=== PATIENT | female | born 1970 | race Two or more races ===

== ENCOUNTER 2021-02-07 11:05 | Emergency (ER) | payer SELFPAY ==
[~2021-02-07] VITALS: Ht 157.5 cm; Wt 71.2 kg
[2021-02-07] MEDS ORDERED: ASPirin 81 mg TAB PO ONE (11:15)
[2021-02-07 11:56] LABS: Basophils # (auto) 0 10 ^3/uL (0-0.2); Basophils % (auto) 0.6 % (0.0-2.0); Eosinophils # (auto) 0.1 10 ^3/uL (0-0.8); Eosinophils % (auto) 1.5 % (0.0-7.0); Hematocrit 38.4 % (36.0-46.0); Lymphocytes # (auto) 2.1 10 ^3/uL (0.4-5.4); Lymphocytes % (auto) 44.7 % (10.0-50.0); Mean Corpuscular Hemoglobin 30.9 pg (28.0-32.0); Monocytes # (auto) 0.4 10 ^3/uL (0-1.3); Monocytes % (auto) 8.2 % (0.0-12.0); Neutrophils # (auto) 2.1 10 ^3/uL (1.6-8.6); Nucleated Red Blood Cells % 0.1 %; Red Blood Cells 4.22 10^6/uL (4.0-5.20); Red Cell Distribution Width 13.2 % (11.8-14.3); White Blood Cell 4.7 10^3/uL (4.4-10.8)
[2021-02-07 11:58] VITALS: BP 137/79
[2021-02-07 12:30] LABS: Albumin 3.8 g/dL (3.4-5.0); Anion Gap 7 (5-15); Blood Urea Nitrogen 11 mg/dL (7-18); Calcium 9.3 mg/dL (8.5-10.1); Carbon Dioxide 25 mmol/L (21-32); Chloride 106 mmol/L (98-107); Glucose 165 mg/dL (74-106); Magnesium 2.1 mg/dL (1.6-2.6); Potassium 4.1 mmol/L (3.5-5.1); Sodium 138 mmol/L (136-145)
[2021-02-07 12:37] LABS: Alanine Aminotransferase 92 U/L (13-56); Alkaline Phosphatase 95 U/L (45-117); Aspartate Aminotransferase 79 U/L (15-37); BUN/Creatinine Ratio 16.4; Bilirubin, Total 0.8 mg/dL (0.2-1.0); GFR African American 121 mL/min; GFR Non-African American 100 mL/min; Total Protein 8.8 g/dL (6.4-8.2)
== END 2021-02-07 13:20 | disposition home or self-care (01) ==
LOC: ER 11:05
DX: R07.89 Other chest pain (principal); E11.9 Type 2 diabetes mellitus without complications; Z90.89 Acquired absence of other organs
CPT/HCPCS: 36415; 71046; 80053; 83735; 84443; 84484; 85025; 85379; 93005

== ENCOUNTER 2023-07-12 15:00 | Emergency (ER) | payer MEDICAID, OTHER ==
[~2023-07-12] VITALS: Ht 157.5 cm; Wt 77.2 kg
[2023-07-12] MEDS ORDERED: METH4PAK PO (15:13)
[2023-07-12 17:07] VITALS: BP 128/80; PULSE 74; RESP 18; TEMP 98.6; O2SAT 98
== END 2023-07-12 17:08 | disposition home or self-care (01) ==
LOC: ER 15:00
DX: G51.0 Bell's palsy (principal); E11.9 Type 2 diabetes mellitus without complications; Z98.890 Other specified postprocedural states; Z79.899 Other long term (current) drug therapy
CPT/HCPCS: 70450

== ENCOUNTER 2023-07-19 22:08 | Emergency (ER) | payer MEDICAID ==
[~2023-07-19] VITALS: Ht 157.5 cm; Wt 77.3 kg
[~2023-07-19 22:08] MED LIST: METH4PAK PO
[2023-07-19 23:17] LABS: Basophils # (auto) 0 10 ^3/uL (0-0.2); Basophils % (auto) 0.5 % (0.0-2.0); Eosinophils # (auto) 0.1 10 ^3/uL (0-0.8); Eosinophils % (auto) 1.2 % (0.0-7.0); Hematocrit 38.1 % (36.0-46.0); Hemoglobin 12.9 g/dL (12.2-16.2); Lymphocytes # (auto) 3.1 10 ^3/uL (0.4-5.4); Lymphocytes % (auto) 34.3 % (10.0-50.0); Mean Corpuscular Hemoglobin 32.2 pg (28.0-32.0); Mean Corpuscular Hgb Conc. 33.9 g/dL (32.0-36.0); Monocytes # (auto) 0.8 10 ^3/uL (0-1.3); Monocytes % (auto) 8.8 % (0.0-12.0); Neutrophils # (auto) 4.9 10 ^3/uL (1.6-8.6); Neutrophils % (auto) 55.2 % (37.0-80.0); Nucleated Red Blood Cells % 0.1 %; Red Blood Cells 4.01 10^6/uL (4.0-5.20); White Blood Cell 8.9 10^3/uL (4.4-10.8)
[2023-07-19 23:35] LABS: Alanine Aminotransferase 68 U/L (7-40); Albumin 3.9 g/dL (3.2-4.8); Alkaline Phosphatase 86 U/L (46-116); Anion Gap 5 (5-15); Aspartate Aminotransferase 51 U/L (13-40); BUN/Creatinine Ratio 21.3 (10.0-20.0); Blood Urea Nitrogen 17 mg/dL (9-23); Calcium 9.7 mg/dL (8.7-10.4); Carbon Dioxide 27 mmol/L (20-30); Chloride 106 mmol/L (98-107); Glucose 200 mg/dL (74-106); Potassium 3.9 mmol/L (3.5-5.1); Sodium 138 mmol/L (136-145)
[2023-07-19 23:36] LABS: Bilirubin, Total 0.4 mg/dL (0.2-1.0); Total Protein 7.1 g/dL (5.7-8.2)
[2023-07-20] MEDS ORDERED: VALA1TAB PO (00:52)
[2023-07-20 01:25] VITALS: BP 125/74; TEMP 97.8
[2023-07-20 01:26] VITALS: PULSE 82; RESP 16; O2SAT 97
[2023-07-20] MEDS: KETOROLAC TROMETH 60MG/2ML VIAL IM ONE (01:34)
== END 2023-07-20 01:35 | disposition home or self-care (01) ==
LOC: ER 22:08
DX: G51.0 Bell's palsy (principal); E11.9 Type 2 diabetes mellitus without complications; Z90.710 Acquired absence of both cervix and uterus
CPT/HCPCS: 36415; 70450; 71045; 72125; 80053; 84484; 85025; 93005; 96372; 99285; J1885

== ENCOUNTER 2024-12-31 15:44 | Emergency (ER) | payer MEDICAID, OTHER ==
[~2024-12-31] VITALS: Ht 154.9 cm; Wt 72.7 kg
[~2024-12-31 15:44] MED LIST changes: +VALA1TAB PO
--- NOTE | 2024-12-31 16:03 | ED.PDOC ---
SOB-HPI HPI Comments This is a 54 year old female presenting to the ED with chief complaint of cough. Patient reports that she has been experiencing a cough with associated SOB, poor appetite, and phlegm production for the past 9 days. Patient denies any fever, chills, N/V, chest pain, headache, or dizziness. Patient denies any history of asthma or COPD. Vital signs were stable at arrival. 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 Family History Family History: Family hx of DM Social History Smoker: Non-Smoker Alcohol: Denies ETOH Use Drugs: Denies Drug Use Lives In: Home Constitutional: denies: chills, diaphoresis, fatigue, fever, malaise, sweats, weakness, others EENTM: denies: blurred vision, double vision, ear bleeding, ear discharge, ear drainage, ear pain, ear ringing, eye pain, eye redness, hearing loss, mouth pain, mouth swelling, nasal discharge, nose bleeding, nose congestion, nose pain, photophobia, tearing, throat pain, throat swelling, voice changes, others Respiratory: reports: cough, shortness of breath; denies: hemoptysis, orthopnea, SOB at rest, SOB with excertion, stridor, wheezing, others Cardiovascular: denies: chest pain, dizzy spells, diaphoresis, Dyspnea on exertion, edema, irregular heart beat, left arm pain, lightheadedness, palpitations, PND, syncope, others Gastrointestinal: reports: poor appetite; denies: abdomen distended, abdominal pain, blood streaked bowels, constipated, diarrhea, dysphagia, difficulty swallowing, hematemesis, melena, nausea, poor fluid intake, rectal bleeding, rectal pain, vomiting, others Genitourinary: denies: abnormal vagina bleeding, burning, dyspareunia, dysuria, flank pain, frequency, hematuria, incontinence, pain, , vagina discharge, urgency, others Neurological: denies: dizziness, fainting, headache, left sided numbness, left sided weakness, numbness, paresthesia, pre-existing deficit, right sided num bness, right sided weakness, seizure, speech problems, tingling, tremors, weakness, others Musculoskeletal: denies: back pain, gout, joint pain, joint swelling, muscle pain, muscle stiffness, neck pain, others Integumetry: denies: bruises, change in color, change in hair/nails, dryness, laceration, lesions, lumps, rash, wounds, others Allergic/Immunocompromised: denies: Difficulty Healing, Frequent Infections, Hives, Itching, others Hematologic/Lymphatic: denies: anemia, blood clots, easy bleeding, easy bruising, swollen glands, others Endocrine: denies: excessive hunger, excessive sweating, excessive thirst, excessive urination, flushing, intolerance to cold, intolerance to heat, unexplained weight gain, unexplained weight loss, others Psychiatric: denies: anxiety, bipolar disorder, depression, hopeless, panic disorder, schizophrenia, sleepless, suicidal, others All Other Systems: Reviewed and Negative Physical Exam General Appearance: Mild Distress (Patient was in moderate distress at time of evaluation due to coughing concerns.), Normal HEENT: Normal ENT Inspection, Pharynx Normal, TMs Normal Neck: Full Range of Motion, Non-Tender, Normal, Normal Inspection Respiratory: Chest Non-Tender, Lungs Clear, No Accessory Muscle Use, No Respiratory Distress, Normal Breath Sounds, Other (Unremarkable auscultation bilateral lung stewart.) Cardiovascular: No Edema, No JVD, No Murmur, No Gallop, Normal Peripheral Pulses, Regular Rate/Rhythm Breast Exam: Deferred Gastrointestinal: No Organomegaly, Non Tender, No Pulsatile Mass, Normal Bowel Sounds, Soft Genitalia: Deferred Pelvic: Deferred Rectal: Deferred Extremities: No calf tenderness, Normal capillary refill, Normal inspection, Normal range of motion, Non-tender, No pedal edema Neurologic: Alert, No Motor Deficits, Normal Affect, Normal Mood, No Sensory Deficits Cerebellar Function: NOT DONE Reflexes: NOT DONE Skin: Dry, Normal Color, Warm Lymphatic: No Adenopathy Was a procedure done? Was a procedure done?: No Differential Dx Differential Diagnosis: Pneumonia, URI, Other (Allergies) X-Ray, Labs, Meds, VS Vital Signs Date Time Temp Pulse Resp B/P (MAP) Pulse Ox O2 Delivery O2 Flow Rate FiO2 12/31/24 17:14 82 17 118/80 (93) 98 12/31/24 17:14 82 17 98 Room Air 12/31/24 15:46 98.3 90 16 137/81 97 98.3 Lab Test 12/31/24 16:12 Range/Units White Blood Count 7.3 4.4-10.8 10^3/uL Red Blood Count 4.31 4.0-5.20 10^6/uL Hemoglobin 14.2 12.2-16.2 g/dL Hematocrit 40.3 36.0-46.0 % Mean Corpuscular Volume 93.5 80.0-100.0 fL Mean Corpuscular Hemoglobin 32.9 H 28.0-32.0 pg Mean Corpuscular Hemoglobin Concent 35.2 32.0-36.0 g/dL Red Cell Distribution Width 13.2 11.8-14.3 % Platelet Count 178 140-450 10^3/uL Mean Platelet Volume 8.8 6.9-10.8 fL Neutrophils (%) (Auto) 47.5 37.0-80.0 % Lymphocytes (%) (Auto) 43.0 10.0-50.0 % Monocytes (%) (Auto) 8.3 0.0-12.0 % Eosinophils (%) (Auto) 0.9 0.0-7.0 % Basophils (%) (Auto) 0.3 0.0-2.0 % Neutrophils # (Auto) 3.4 1.6-8.6 10 ^3/uL Lymphocytes # (Auto) 3.1 0.4-5.4 10 ^3/uL Monocytes # (Auto) 0.6 0-1.3 10 ^3/uL Eosinophils # (Auto) 0.1 0-0.8 10 ^3/uL Basophils # (Auto) 0 0-0.2 10 ^3/uL Nucleated Red Blood Cells 0.2 % D-Dimer, Quantitative 0.35 0.0-0.49 mg/L FEU Sodium Level 136 136-145 mmol/L Potassium Level 3.9 3.5-5.1 mmol/L Chloride Level 102 98-107 mmol/L Carbon Dioxide Level 25 20-31 mmol/L Anion Gap 9 5-15 Blood Urea Nitrogen 7 L 9-23 mg/dL Creatinine 0.65 0.550-1.02 mg/dL Glomerular Filtration Rate Calc 106 >90 mL/min BUN/Creatinine Ratio 10.8 10.0-20.0 Serum Glucose 271 H 74-106 mg/dL Calcium Level 9.4 8.7-10.4 mg/dL Troponin I High Sensitivity < 3 L </=34 ng/L B-Type Natriuretic Peptide 10.56 0-100 pg/mL Current Medications Medications (Trade) Dose Ordered Sig/Irina Route Start Time Stop Time Status Last Admin Dexamethasone Sodium Phosphate (Decadron Injection) 10 mg ONCE ONCE IM 12/31/24 16:00 12/31/24 16:07 DC 12/31/24 17:10 X-Ray, Labs, Meds, VS Comment All studies performed the ED were evaluated by me personally. Imaging studies were unremarkable for any pneumonia. Patient appears to be suffering from a prolonged viral upper respiratory illness. Advised patient utilize medication as needed. Tylenol and or Motrin for fever assistance. Time of 1ST Reevaluation: 17:32 Reevaluation 1ST: Improved Consultation: PCP Patient Education/Counseling: Diagnosis, Treatment Family Education/Counseling: Diagnosis, Treatment, No Family Present SEPSIS Sepsis Screen Date sepsis recognized/suspect: Dec 31, 2024 Time Sepsis recognized/suspect: 8 Recent Procedure: No On Antibiotic Therapy: No Respiratory Rate >20: No Heart Rate >90: Yes Temp<36 C (96.8 F) or >38.3 C: No SBP <90 or MAP <65 mmHG: No New Acute Mental Status Change: No Is the patient on CPAP, BIPAP,: No Physician Orders Chest Portable (12/31/24 16:00) Electrocardigram (12/31/24 16:00) Vital Signs Date Time Temp Pulse Resp B/P (MAP) Pulse Ox O2 Delivery O2 Flow Rate FiO2 12/31/24 17:14 82 17 118/80 (93) 98 12/31/24 17:14 82 17 98 Room Air 12/31/24 15:46 98.3 90 16 137/81 97 98.3 Laboratory Tests Test 12/31/24 16:12 White Blood Count 7.3 10^3/uL (4.4-10.8) Medications Medications Dose Ordered Sig/Irina Route Start Time Stop Time Status Last Admin Dose Admin Dexamethasone Sodium Phosphate 10 mg ONCE ONCE IM 12/31/24 16:00 12/31/24 16:07 DC 12/31/24 17:10 Departure 1 Departure Time of Disposition: 17:33 Impression: Primary Impression: Viral upper respiratory illness Disposition: HOME / SELF CARE / HOMELESS Condition: Stable Additional Instructions: Advise utilizing medication as needed for cough relief. Tylenol and or Motrin as needed for fever reduction. Advised patient that I have seen some patients have success with [id number] [facility] liquid Tussin cough syrup and Cepacol honey cough drops. e-Prescriptions Benzonatate (Benzonatate) 100 Mg Cap 1 CAP PO TID, #20 CAP Prov: DARIELA SOLORIO PAC 12/31/24 Discharged With: Self, Friend Critical Care Note Critical Care Time?: No Stability Stability form required: No Heart Score Heart Score: Heart Score Response (Comments) Value History N/A 0 EKG N/A 0 Age N/A 0 Risk Factors N/A 0 Troponin N/A 0 Total 0 I personally scribed for DARIELA SOLORIO PAC ([email or web address]) on 12/31/24 at 16:03. Electronically submitted by Kartik Hardy ([email or web address]). DARIELA SOLORIO PAC Dec 31, 2024 16:03
[2024-12-31 16:41] LABS: Hematocrit 40.3 % (36.0-46.0); Hemoglobin 14.2 g/dL (12.2-16.2); Mean Corpuscular Hemoglobin 32.9 pg (28.0-32.0); Mean Corpuscular Volume 93.5 fL (80.0-100.0); Nucleated Red Blood Cells % 0.2 %
--- NOTE | 2024-12-31 16:41 | DVH ---
XY CHEST PORTABLE, HISTORY: Shortness of breath COMPARISON: XY CHEST XRAY 1 VIEW on DOS: 07/19/23, CHEST TWO VIEWS ROUTINE on DOS: 02/07/21 XY CHEST XRAY 1 VIEW on DOS: 07/19/23, CHEST TWO VIEWS ROUTINE on DOS: 02/07/21 TECHNICAL DATA: 1 view of the chest was obtained. FINDINGS: Lines and tubes: None Cardiomediastinal silhouette: normal Pulmonary vasculature: normal Lung expansion: normal Lung airspace: normal Lung interstitium: normal Pleura: normal Pneumothorax: no Bones: Unremarkable Other: no IMPRESSION: No acute intrathoracic abnormality.
[2024-12-31 16:46] LABS: Chloride 102 mmol/L (98-107); Potassium 3.9 mmol/L (3.5-5.1); Sodium 136 mmol/L (136-145)
[2024-12-31 16:47] LABS: Anion Gap 9 (5-15); Calcium 9.4 mg/dL (8.7-10.4); Carbon Dioxide 25 mmol/L (20-31)
[2024-12-31 16:52] LABS: BUN/Creatinine Ratio 10.8 (10.0-20.0)
[2024-12-31 16:54] LABS: Glucose 271 mg/dL (74-106)
[2024-12-31 16:55] LABS: Blood Urea Nitrogen 7 mg/dL (9-23)
[2024-12-31 17:14] VITALS: BP 118/80; RESP 17; TEMP 98.2; O2SAT 98
[2024-12-31 17:30] VITALS: PULSE 77
[2024-12-31] MEDS ORDERED: BENZ100C97 PO (17:34)
--- NOTE | 2024-12-31 19:01 | ECG ---
[facility] Test Date: 2024-12-31 Test Time: 17:17:23 Pat Name: CLIFF BLISS Department: ED Room: Gender: F Revit Drafter: HÉCTOR : 1970 Requested By: DARIELA SOLORIO Order Number: [id number] Reading MD: Joce Ovalles Measurements Intervals [place] Rate: 77 P: 42 UT: 153 QRS: 11 QRSD: 101 T: 29 QT: 390 QTc: 442 Interpretive Statements Sinus rhythm Electronically Signed On 01-02-2025 22:55:23 PDT by Joce Ovalles Please click the below link to view image of tracing.
== END 2024-12-31 17:40 | disposition home or self-care (01) ==
LOC: ER 15:44
DX: J06.9 Acute upper respiratory infection, unspecified (principal); E11.9 Type 2 diabetes mellitus without complications; Z90.710 Acquired absence of both cervix and uterus; Z90.49 Acquired absence of other specified parts of digestive tract
CPT/HCPCS: 36415; 71045; 80048; 83880; 84484; 85025; 85379; 93005; 96372; 99285; J1100

== ENCOUNTER 2025-04-02 09:50 | Inpatient (IN) | payer MEDICAID ==
[~2025-04-02] VITALS: Ht 154.9 cm; Wt 74.1 kg
[~2025-04-02 09:50] MED LIST changes: +BENZ100C97 PO
[2025-04-02] MEDS: SODIUM CHLORIDE 0.9% 1,000 ML IV ONE (11:11)
[2025-04-02] MEDS: MORPHINE SULFATE 4 MG/ML SYR/VIAL IV ONE (11:12)
[2025-04-02] MEDS: ONDANSETRON HCL 4 MG/2 ML VIAL IV ONE (11:12)
[2025-04-02 11:13] LABS: Hematocrit 35.8 % (36.0-46.0); Hemoglobin 12.4 g/dL (12.2-16.2); Mean Corpuscular Hemoglobin 33.0 pg (28.0-32.0); Mean Corpuscular Volume 95.4 fL (80.0-100.0); Nucleated Red Blood Cells % 0.1 %
--- NOTE | 2025-04-02 11:20 | ED.PDOC ---
History of Present Illness HPI Comments 54-year-old female who was Latvian-speaking presents to the ER with prior medical history of diabetes, thyroid: Surgical history of appendectomy, hysterectomy and a chief complaint of abdominal pain. Patient reports on having right sided facial pain due from trauma two weeks ago, and supra pubic pain for past 5 days. Patient comes in having heaviness in the pubic area as well. Patient has been having hematuria which started last night associated with frequency. Denies any other symptoms at this time. Denies chills, fever, N/V/D, SOB, CP. No other associated symptoms, modifiers, recent injuries or sick contacts present at this time. Chief Complaint: Abdominal Pain Time Seen by MD: 10:45 Primary Care Provider: NONE Reviewed Notes: Nurses Notes, Medications, Allergies Allergies: Coded Allergies: NO KNOWN ALLERGIES (Unverified , 02/07/21) Home Meds Active Scripts Benzonatate (Benzonatate) 100 Mg Cap, 1 CAP PO TID, #20 CAP Prov:DARIELA SOLORIO PAC 12/31/24 Valacyclovir Hcl (Valtrex) 1 Gm Tab, 1 TAB PO TID for 7 Days, #21 TAB Prov:ANA LIU MD 07/20/23 Methylprednisolone (Medrol Dosepak) 4 Mg Mesfin, 4 MG PO UD, #21 TAB UAD Prov:KODI DELA CRUZ MD 07/12/23 Information Source: Patient Mode of Arrival: Ambulatory Severity: Moderate Timing: Days Duration: Since onset, Days Prehospital treatment: None Past Medical History PAST MEDICAL HISTORY: DM, Thyroid Surgical History: Appendectomy, Hysterectomy 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 Family History Family History: Reviewed,noncontributory to illness, Unknown Social History Smoker: Non-Smoker Alcohol: Denies ETOH Use Drugs: Denies Drug Use Lives In: Home Constitutional: denies: chills, diaphoresis, fatigue, fever, malaise, sweats, weakness, others EENTM: denies: blurred vision, double vision, ear bleeding, ear discharge, ear drainage, ear pain, ear ringing, eye pain, eye redness, hearing loss, mouth pain, mouth swelling, nasal discharge, nose bleeding, nose congestion, nose pain, photophobia, tearing, throat pain, throat swelling, voice changes, others Respiratory: denies: cough, hemoptysis, orthopnea, SOB at rest, shortness of breath, SOB with excertion, stridor, wheezing, others Cardiovascular: denies: chest pain, dizzy spells, diaphoresis, Dyspnea on exertion, edema, irregular heart beat, left arm pain, lightheadedness, palpitations, PND, syncope, others Gastrointestinal: reports: abdominal pain (Suprapubic pain/pubic heaviness); denies: abdomen distended, blood streaked bowels, constipated, diarrhea, dysphagia, difficulty swallowing, hematemesis, melena, nausea, poor appetite, poor fluid intake, rectal bleeding, rectal pain, vomiting, others Genitourinary: denies: abnormal vagina bleeding, burning, dyspareunia, dysuria, flank pain, frequency, hematuria, incontinence, pain, , vagina discharge, urgency, others Neurological: denies: dizziness, fainting, headache, left sided numbness, left sided weakness, numbness, paresthesia, pre-existing deficit, right sided numbness, right sided weakness, seizure, speech problems, tingling, tremors, weakness, others Musculoskeletal: denies: back pain, gout, joint pain, joint swelling, muscle pain, muscle stiffness, neck pain, others Integumetry: denies: bruises, change in color, change in hair/nails, dryness, laceration, lesions, lumps, rash, wounds, others Allergic/Immunocompromised: denies: Difficulty Healing, Frequent Infections, Hives, Itching, others Hematologic/Lymphatic: denies: anemia, blood clots, easy bleeding, easy bruisin g, swollen glands, others Endocrine: denies: excessive hunger, excessive sweating, excessive thirst, excessive urination, flushing, intolerance to cold, intolerance to heat, unexplained weight gain, unexplained weight loss, others Psychiatric: denies: anxiety, bipolar disorder, depression, hopeless, panic disorder, schizophrenia, sleepless, suicidal, others All Other Systems: Reviewed and Negative Physical Exam Exam Comments Suprapubic pain General Appearance: No Apparent Distress, Normal HEENT: Normal ENT Inspection, Pharynx Normal, TMs Normal Neck: Full Range of Motion, Non-Tender, Normal, Normal Inspection Respiratory: Chest Non-Tender, Lungs Clear, No Accessory Muscle Use, No Respiratory Distress, Normal Breath Sounds Cardiovascular: No Edema, No JVD, No Murmur, No Gallop, Normal Peripheral Pulses, Regular Rate/Rhythm Breast Exam: Deferred Gastrointestinal: No Organomegaly, Non Tender, No Pulsatile Mass, Normal Bowel Sounds, Soft Genitalia: Deferred Pelvic: Deferred Rectal: Deferred Extremities: No calf tenderness, Normal capillary refill, Normal inspection, Normal range of motion, Non-tender, No pedal edema Musculoskeletal : Apperance: Normal Neurologic: Alert, rn manager II-XII nml as Tested, No Motor Deficits, Normal Affect, Normal Mood, No Sensory Deficits Cerebellar Function: Normal Reflexes: Normal Skin: Dry, Normal Color, Warm Lymphatic: No Adenopathy Was a procedure done? Was a procedure done?: No Differential Dx Considerations may include: See MDM X-Ray, Labs, Meds, VS Vital Signs Date Time Temp Pulse Resp B/P (MAP) Pulse Ox O2 Delivery O2 Flow Rate FiO2 04/02/25 14:00 98.5 68 16 133/84 (100) 97 98.5 04/02/25 11:42 70 19 126/70 04/02/25 11:18 Room Air* 0 21 04/02/25 11:17 98.1 79 17 137/87 (104) 98 98.1 04/02/25 11:12 79 17 137/87 04/02/25 09:52 98.8 71 16 144/88 97 98.8 Lab Test 04/02/25 14:09 04/02/25 10:58 Range/Units Urine Color Dark-brown Yellow Urine Clarity Ex.turbid Clear Urine pH 6.0 5.0-9.0 Urine Specific [place] 1.019 1.001-1.035 Urine Protein 1+ H Negative Urine Ketones 1+ H Negative Urine Blood 3+ H Negative /uL Urine Nitrite Negative Negative Urine Bilirubin Negative Negative Urine Urobilinogen Normal Negative mg/dL Urine Leukocyte Esterase 3+ Negative /uL Urine RBC 93877 0 - 4 /hpf Urine Microscopic WBC 524 H 0-5 /HPF Urine Squamous Epithelial Cells None seen <5 /hpf Urine Bacteria None seen None Seen /hpf Urine Glucose Trace Normal mg/dL White Blood Count 7.6 4.4-10.8 10^3/uL Red Blood Count 3.75 L 4.0-5.20 10^6/uL Hemoglobin 12.4 12.2-16.2 g/dL Hematocrit 35.8 L 36.0-46.0 % Mean Corpuscular Volume 95.4 80.0-100.0 fL Mean Corpuscular Hemoglobin 33.0 H 28.0-32.0 pg Mean Corpuscular Hemoglobin Concent 34.6 32.0-36.0 g/dL Red Cell Distribution Width 12.7 11.8-14.3 % Platelet Count 163 140-450 10^3/uL Mean Platelet Volume 8.5 6.9-10.8 fL Neutrophils (%) (Auto) 69.2 37.0-80.0 % Lymphocytes (%) (Auto) 23.3 10.0-50.0 % Monocytes (%) (Auto) 6.8 0.0-12.0 % Eosinophils (%) (Auto) 0.4 0.0-7.0 % Basophils (%) (Auto) 0.3 0.0-2.0 % Neutrophils # (Auto) 5.3 1.6-8.6 10 ^3/uL Lymphocytes # (Auto) 1.8 0.4-5.4 10 ^3/uL Monocytes # (Auto) 0.5 0-1.3 10 ^3/uL Eosinophils # (Auto) 0 0-0.8 10 ^3/uL Basophils # (Auto) 0 0-0.2 10 ^3/uL Nucleated Red Blood Cells 0.1 % Sodium Level 140 136-145 mmol/L Potassium Level 3.7 3.5-5.1 mmol/L Chloride Level 105 98-107 mmol/L Carbon Dioxide Level 25 20-31 mmol/L Anion Gap 10 5-15 Blood Urea Nitrogen 6 L 9-23 mg/dL Creatinine 0.54 L 0.550-1.02 mg/dL Glomerular Filtration Rate Calc 111 >90 mL/min BUN/Creatinine Ratio 11.1 10.0-20.0 Serum Glucose 170 H 74-106 mg/dL Calcium Level 9.3 8.7-10.4 mg/dL Total Bilirubin 1.2 H 0.2-1.0 mg/dL Aspartate Amino Transferase (AST) 105 H 13-40 U/L Alanine Aminotransferase (ALT) 94 H 7-40 U/L Alkaline Phosphatase 106 46-116 U/L Total Protein 7.8 5.7-8.2 g/dL Albumin 4.0 3.2-4.8 g/dL Lipase 28 12-53 U/L Current Medications Medications (Trade) Dose Ordered Sig/Irina Route Start Time Stop Time Status Last Admin Sodium Chloride 1,000 ml @ 1,000 mls/hr Q1H ONCE IV 04/02/25 11:00 04/02/25 11:59 DC 04/02/25 11:11 Ondansetron HCl (Zofran) 4 mg ONCE ONCE IV 04/02/25 11:00 04/02/25 11:01 DC 04/02/25 11:12 Morphine Sulfate 4 mg ONCE ONCE IV 04/02/25 11:00 04/02/25 11:01 DC 04/02/25 11:12 Time of 1ST Reevaluation: 11:15 Reevaluation 1ST: Unchanged Patient Education/Counseling: Diagnosis, Treatment, Prognosis Family Education/Counseling: No Family Present Additional Information Medical Decision Making: A 54-year-old female with a history of type 2 diabetes, hypothyroidism, appendectomy, and hysterectomy presents with severe lower abdominal pain. Given her comorbidities, the differential diagnosis included pyelonephritis, complicated UTI, infected obstructing ureteral stone, biliary pathology, hepatic process, colitis, diverticular disease, ovarian remnant pathology, and less urgently, musculoskeletal or postoperative adhesional pain. Workup: CBC: benign; no leukocytosis. CMP: notable for total bilirubin 1.2, AST 105, ALT 94, suggesting mild hepatocellular injury or reactive elevation in the setting of infection or dehydration. UA: significant for large RBCs and WBCs, consistent with urinary tract infection with possible upper tract involvement; hematuria also raises concern for ne phrolithiasis. CT abdomen/pelvis: 2 mm non-obstructive right renal calculus at superior pole No hydronephrosis or obstruction No acute intra-abdominal surgical process No evidence of gallbladder pathology (post-manav history not mentioned) or bowel obstruction. Urgent considerations included early pyelonephritis, infected stone, and evolution toward sepsis, especially given underlying DM2. ED Course / Treatment: The patient reported severe abdominal pain, requiring IV morphine for analgesia. She also received IV Zofran and IV fluids for hydration and nausea. Given UA findings and high suspicion for pyelonephritis, she was started on IV ceftriaxone for broad-spectrum coverage. A lactic acid and blood cultures were ordered to evaluate for evolving sepsis or bacteremia, which is appropriate given DM2 and intractable pain. Serial assessments were performed; despite the absence of fever or hypotension on available data, her abdominal pain remained severe, requiring inpatient-level analgesia and monitoring. Risk / Disposition: Given: Severe abdominal pain requiring parenteral analgesia UA consistent with UTI / pyelonephritis Elevated liver enzymes of unclear etiology Underlying DM2, increasing risk of complicated infection Concern for infected nephrolithiasis Need for IV antibiotics, lactic acid, and blood cultures Need for serial abdominal and clinical reassessment the patient is not appropriate for outpatient management. She will be admitted for pyelonephritis, further evaluation of LFT abnorma lities, monitoring for systemic infection, and continued analgesia. This encounter involves high complexity MDM due to diagnostic uncertainty, multiple comorbidities, and parenteral antibiotic management. SEPSIS Sepsis Screen Date sepsis recognized/suspect: Apr 02, 2025 Time Sepsis recognized/suspect: 951 Recent Procedure: No On Antibiotic Therapy: No Respiratory Rate >20: No Heart Rate >90: No Temp<36 C (96.8 F) or >38.3 C: No SBP <90 or MAP <65 mmHG: No New Acute Mental Status Change: No Is the patient on CPAP, BIPAP,: No Physician Orders Ct Ab Pel Wo Con-No Oral Or Iv (04/02/25 14:44) Ceftriaxone 1gm/50ml (Rocephin) (04/02/25 16:30) Lactic Acid W/ Reflex Order (04/02/25 16:21) Blood Culture (04/02/25 16:21) Vital Signs Date Time Temp Pulse Resp B/P (MAP) Pulse Ox O2 Delivery O2 Flow Rate FiO2 04/02/25 14:00 98.5 68 16 133/84 (100) 97 98.5 04/02/25 11:42 70 19 126/70 04/02/25 11:18 Room Air* 0 21 04/02/25 11:17 98.1 79 17 137/87 (104) 98 98.1 04/02/25 11:12 79 17 137/87 04/02/25 09:52 98.8 71 16 144/88 97 98.8 Laboratory Tests Test 04/02/25 10:58 White Blood Count 7.6 10^3/uL (4.4-10.8) Medications Medications Dose Ordered Sig/Irina Route Start Time Stop Time Status Last Admin Dose Admin Morphine Sulfate 4 mg ONCE ONCE IV 04/02/25 11:00 04/02/25 11:01 DC 04/02/25 11:12 Ondansetron HCl 4 mg ONCE ONCE IV 04/02/25 11:00 04/02/25 11:01 DC 04/02/25 11:12 Sodium Chloride 1,000 ml @ 1,000 mls/hr Q1H ONCE IV 04/02/25 11:00 04/02/25 11:59 DC 04/02/25 11:11 Departure 1 Departure Time of Disposition: 16:34 Impression: Primary Impression: Acute pyelonephritis Additional Impression: Intractable abdominal pain Disposition: ADMITTED INPATIENT Admit to: Med Surg Condition: Guarded Critical Care Note Critical Care Time?: No Stability Stability form required: No I personally scribed for ASHANTI RICH MD ([email or web address]) on 04/02/25 at 11:20. Electronically submitted by Grzegorz Benitez ([email or web address]). ASHANTI RICH MD Apr 02, 2025 11:20
[2025-04-02 11:25] LABS: Albumin 4.0 g/dL (3.2-4.8); Alkaline Phosphatase 106 U/L (46-116); Anion Gap 10 (5-15); BUN/Creatinine Ratio 11.1 (10.0-20.0); Calcium 9.3 mg/dL (8.7-10.4); Carbon Dioxide 25 mmol/L (20-31); Chloride 105 mmol/L (98-107); Lipase 28 U/L (12-53); Potassium 3.7 mmol/L (3.5-5.1); Sodium 140 mmol/L (136-145); Total Protein 7.8 g/dL (5.7-8.2)
[2025-04-02 11:27] LABS: Alanine Aminotransferase 94 U/L (7-40); Bilirubin, Total 1.2 mg/dL (0.2-1.0); Blood Urea Nitrogen 6 mg/dL (9-23); Glucose 170 mg/dL (74-106)
[2025-04-02 14:30] LABS: Urine Protein, UAD 1+ (Negative)
--- NOTE | 2025-04-02 15:50 | DVH ---
COMPUTERIZED TOMOGRAPHY ABDOMEN AND PELVIS WITHOUT CONTRAST REASON FOR EXAM: right flank pain COMPARISON: None TECHNIQUE: Spiral scans were acquired from the diaphragm to the symphysis pubis without intravenous contrast administration. 2-D coronal and sagittal reformatted images were provided. Radiation optimization: All CT scans at this facility use at least one of these dose optimization techniques: Automated exposure control mA and/or kV adjustment per patient size (includes targeted exams where dose is matched to clinical indication) or iterative reconstruction. RADIATION DOSE: CTDI: 15 mGy DLP: 842 mGy-cm FINDINGS: The visualized lung bases are grossly clear. There is no pleural effusion. There is no pericardial effusion. The spleen is not enlarged. The liver is normal in size and contour. Evaluation of the abdominal organs is suboptimal in the absence of intravenous contrast. There is a 3 mm calcified granuloma at the right liver dome consistent with prior granulomatous disease. No calcified gallstone is identified. Unenhanced appearance of the pancreas is grossly unremarkable. 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 The adrenal glands appear normal. The kidneys are similar in size. There is no hydronephrosis of either kidney. There is a 2 mm nonobstructive calculus at the superior pole of the right kidney. No ureteral or bladder calculus is identified. The urinary bladder is within normal limits. The uterus and ovaries are within normal limits. There is trace free fluid in the dependent pelvis, likely physiologic. The colonic stool burden is small. The appendix is not seen and may be absent. There is no pericecal inflammatory change to suggest acute appendicitis. There is no abnormal distention of the sm all bowel. There is no abdominal aortic aneurysm. No pathologic lymphadenopathy is identified by size criteria. No acute osseous abnormality is identified. IMPRESSION: There is a 2 mm nonobstructive calculus at the superior pole of the right kidney. No ureteral or bladder calculus is identified. There is no hydronephrosis of either kidney.
[2025-04-02] MEDS ORDERED: KETOROLAC TROMETH 30 MG/ML 1ML VIAL IV PRN (17:45)
[2025-04-02] MEDS: SODIUM CHLORIDE 0.9% 1,000 ML IV SCH (17:45)
--- NOTE | 2025-04-02 17:54 | DVHHPRES ---
History of Present Illness Resident Creating Document: JAKOB BOYKIN RESIDENT History of Present Illness This is a 54-year-old female with past medical history of DM 2 on metformin, hypothyroidism, renal calculus unknown side, gastric sleeve surgery came with a complaint of hematuria associated with right flank pain. Flank pain localized on right , dull in nature, no radiation 5-8/10 intensity, no aggravating or relieving factor. Patient stated passage of blood clot in urine since today morning but denies any dysuria, lower abdominal pain, trauma or injury, taking any anticoagulation. Patient had known history of renal stone diagnosed 1 year back. Patient denies any changes of dietary habits. recent visit on ER December 31, 2024 due to upper respiratory infection. Past medical history: As above Past surgical history: Appendicitis, tubal ligation, gastric sleeve surgery Social history: Denies any smoking, EtOH, illicit drug use Family history: Nothing contributory PCP: Rupesh Alfaro Home medication: Levothyroxine, metformin. Review of Systems Constitutional: Yes: Malaise; No: Fever, Chills, Sweats, Weakness, Other Eyes: No: Pain, Vision change, Conjunctivae inflammation, Eyelid inflammation, Other, Redness ENT: No: Ear pain, Ear discharge, Nose pain, Nose discharge, Nose congestion, Mouth pain, Mouth swelling, Throat pain, Throat swelling, Other Respiratory: No: Cough, Dry, Shortness of breath, SOB with excertion, Wheezing, Hemoptysis, Pleuritic Pain, Sputum, Wheezing, Other Cardiovascular: No: Chest Pain, Palpitations, Orthopnea, Paroxysmal Noc. Dyspnea, Edema, Lt Headedness, Other Gastrointestinal: Other (Right flank pain); No: Nausea, Vomiting, Abdominal Pain, Diarrhea, Constipation, Melena, Hematochezia Genitourinary: No Dysuria, No Frequency, No Incontinence; Hematuria; No Retention, No Other Musculoskeletal: No: other, neck pain, shoulder pain, arm pain, back pain, hand pain, leg pain, foot pain Skin: No: Rash, Lesions, Jaundice, Bruising, Other Allergies: Coded Allergies: NO KNOWN ALLERGIES (Unverified , 02/07/21) Medications Current Medications Medications Dose Ordered Sig/Irina Route Start Time Stop Time Status Last Admin Dose Admin Sodium Chloride 1,000 ml @ 120 mls/hr Q8H20M IV 04/02/25 17:45 UNV Ondansetron HCl 4 mg Q4HP PRN IV 04/02/25 17:45 UNV Ceftriaxone Sodium 50 ml @ 100 mls/hr DAILY@09 IV 04/03/25 09:00 UNV Tamsulosin HCl 0.4 mg QPM PO 04/02/25 18:00 UNV Ketorolac Tromethamine 15 mg Q6HR PRN IV 04/02/25 17:45 04/07/25 17:44 UNV Acetaminophen 650 mg Q6HP PRN PO 04/02/25 17:45 UNV Exam Vital Signs Vital Signs Date Time Temp Pulse Resp B/P (MAP) Pulse Ox O2 Delivery O2 Flow Rate FiO2 04/02/25 14:00 98.5 68 16 133/84 (100) 97 98.5 04/02/25 11:18 Room Air* 0 21 General Appearance: Alert, Oriented X3, Cooperative, mild distress HEENT: Atraumatic, PERRLA, EOMI Respiratory: Clear to auscultation, Normal air movement Cardiovascular: Regular rate, Normal S1, No murmurs Abdominal: Normal bowel sounds, Soft, No tenderness, No hepatospenomegaly, Other (Right costo vertebral angle tender on deep palpation) Extremities: No clubbing, No cyanosis, No edema, Normal pulses Skin: No breakdown, No significant lesion Neuro: Normal speech, Strength at 5/5 X4 ext, Normal tone, Cranial nerves 3-12 NL Psych/Mental Status: Mental status NL, Mood NL Labs/Xrays Labs Test 04/02/25 16:30 04/02/25 14:09 04/02/25 10:58 Range/Units Lactic Acid Level 1.0 0.4-2.0 mmol/L Urine Color Dark-brown Yellow Urine Clarity Ex.turbid Clear Urine pH 6.0 5.0-9.0 Urine Specific [place] 1.019 1.001-1.035 Urine Protein 1+ H Negative Urine Ketones 1+ H Negative Urine Blood 3+ H Negative /uL Urine Nitrite Negative Negative Urine Bilirubin Negative Negative Urine Urobilinogen Normal Negative mg/dL Urine Leukocyte Esterase 3+ Negative /uL Urine RBC 98454 0 - 4 /hpf Urine Microscopic WBC 524 H 0-5 /HPF Urine Squamous Epithelial Cells None seen <5 /hpf Urine Bacteria None seen None Seen /hpf Urine Glucose Trace Normal mg/dL White Blood Count 7.6 4.4-10.8 10^3/uL Red Blood Count 3.75 L 4.0-5.20 10^6/uL Hemoglobin 12.4 12.2-16.2 g/dL Hematocrit 35.8 L 36.0-46.0 % Mean Corpuscular Volume 95.4 80.0-100.0 fL Mean Corpuscular Hemoglobin 33.0 H 28.0-32.0 pg Mean Corpuscular Hemoglobin Concent 34.6 32.0-36.0 g/dL Red Cell Distribution Width 12.7 11.8-14.3 % Platelet Count 163 140-450 10^3/uL Mean Platelet Volume 8.5 6.9-10.8 fL Neutrophils (%) (Auto) 69.2 37.0-80.0 % Lymphocytes (%) (Auto) 23.3 10.0-50.0 % Monocytes (%) (Auto) 6.8 0.0-12.0 % Eosinophils (%) (Auto) 0.4 0.0-7.0 % Basophils (%) (Auto) 0.3 0.0-2.0 % Neutrophils # (Auto) 5.3 1.6-8.6 10 ^3/uL Lymphocytes # (Auto) 1.8 0.4-5.4 10 ^3/uL Monocytes # (Auto) 0.5 0-1.3 10 ^3/uL Eosinophils # (Auto) 0 0-0.8 10 ^3/uL Basophils # (Auto) 0 0-0.2 10 ^3/uL Nucleated Red Blood Cells 0.1 % Sodium Level 140 136-145 mmol/L Potassium Level 3.7 3.5-5.1 mmol/L Chloride Level 105 98-107 mmol/L Carbon Dioxide Level 25 20-31 mmol/L Anion Gap 10 5-15 Blood Urea Nitrogen 6 L 9-23 mg/dL Creatinine 0.54 L 0.550-1.02 mg/dL Glomerular Filtration Rate Calc 111 >90 mL/min BUN/Creatinine Ratio 11.1 10.0-20.0 Serum Glucose 170 H 74-106 mg/dL Calcium Level 9.3 8.7-10.4 mg/dL Total Bilirubin 1.2 H 0.2-1.0 mg/dL Aspartate Amino Transferase (AST) 105 H 13-40 U/L Alanine Aminotransferase (ALT) 94 H 7-40 U/L Alkaline Phosphatase 106 46-116 U/L Total Protein 7.8 5.7-8.2 g/dL Albumin 4.0 3.2-4.8 g/dL Lipase 28 12-53 U/L SEPSIS Sepsis Screen Date sepsis recognized/suspect: Apr 02, 2025 Time Sepsis recognized/suspect: 951 Recent Procedure: No On Antibiotic Therapy: No Respiratory Rate >20: No Heart Rate >90: No Temp<36 C (96.8 F) or >38.3 C: No SBP <90 or MAP <65 mmHG: No New Acute Mental Status Change: No Is the patient on CPAP, BIPAP,: No Physician Orders Ct Ab Pel Wo Con-No Oral Or Iv (04/02/25 14:44) Blood Culture (04/02/25 16:21) Admit (04/02/25 17:32) Code Status (04/02/25 17:32) Sodium Chloride 0.9% (04/02/25 17:45) Ondansetron Hcl (Zofran) (04/02/25 17:45) Notify Md Of Changes From Base (04/02/25 17:32) Electrocardigram (04/02/25 17:32) Ceftriaxone 1gm/50ml (Rocephin) (04/03/25 09:00) Tamsulosin Hydrochloride (Flomax) (04/02/25 17:45) Tamsulosin Hydrochloride (Flomax) (04/02/25 18:00) Ketorolac Injection (Toradol Injection) (04/02/25 17:45) Acetaminophen Tablet (Tylenol Tablet) (04/02/25 17:45) Insulin Lispro (Human) (Humalog) (04/03/25 07:00) Levothyroxine Tablet (Synthroid Tablet) (04/03/25 06:00) Vital Signs Date Time Temp Pulse Resp B/P (MAP) Pulse Ox O2 Delivery O2 Flow Rate FiO2 04/02/25 14:00 98.5 68 16 133/84 (100) 97 98.5 04/02/25 11:42 70 19 126/70 04/02/25 11:18 Room Air* 0 21 04/02/25 11:17 98.1 79 17 137/87 (104) 98 98.1 04/02/25 11:12 79 17 137/87 04/02/25 09:52 98.8 71 16 144/88 97 98.8 Laboratory Tests Test 04/02/25 10:58 04/02/25 16:30 White Blood Count 7.6 10^3/uL (4.4-10.8) Lactic Acid Level 1.0 mmol/L (0.4-2.0) Medications Medications Dose Ordered Sig/Irina Route Start Time Stop Time Status Last Admin Dose Admin Ceftriaxone Sodium 50 ml @ 100 mls/hr ONCE ONCE IV 04/02/25 16:30 04/02/25 16:59 DC 04/02/25 16:51 100 MLS/HR Morphine Sulfate 4 mg ONCE ONCE IV 04/02/25 11:00 04/02/25 11:01 DC 04/02/25 11:12 4 MG Ondansetron HCl 4 mg ONCE ONCE IV 04/02/25 11:00 04/02/25 11:01 DC 04/02/25 11:12 4 MG Sodium Chloride 1,000 ml @ 1,000 mls/hr Q1H ONCE IV 04/02/25 11:00 04/02/25 11:59 DC 04/02/25 11:11 1,000 MLS/HR Assessment/Plan Assessment/Plan Complicated urinary tract infection likely Gram-positive/Gram-negative In ER, received ceftriaxone, morphine, ondansetron, NSS UA shows blood 3+, leukocyte esterase 3+, WBC 524, RBC 15352 IVF Empiric antibiotic ceftriaxone IV daily Pain management Antiemetic Follow a.m. labs Urine culture Nonobstructive calculus superior pole of right kidney CT abdomen pelvis shows 2 mm nonobstructive calculus IVF tamsulosin 0.4 mg Encouraged oral fluid intake as tolerated Essential hypertension during admission blood pressure 144/88 and repeat blood pressure 133/84 Monitor blood pressure DASH DIET Not on any medication Transaminitis total bilirubin 1.2, AST 105, ALT 94, ALP 106 liver ultrasound monitor liver function Calcified granuloma right liver dome follow-up outpatient CT abdomen-calcified granuloma right liver dome Ultrasound liver Type 2 diabetes mellitus Home medication metformin Insulin sliding scale Hemoglobin A1c Avoid sugar and sugar containing diet Hypothyroidism Levothyroxine 75 mcg TSH History of sleeve gastrectomy Diet: Carbohydrate consistent diet DVT prophylaxis: Patient ambulating GI prophylaxis: Pantoprazole Uses court interpreter during encounter ([place]) Goals of care discussions. Full code status. More than 29 minute spent with patient. Case discussed with Dr. Miles. Plan discussed with: Patient, Other (Nurse) My Orders Orders - JAKOB BOYKIN Procedure Category Date Status Time Admit ADMIT 04/02/25 Transmitted 17:32 Code Status CODE 04/02/25 Transmitted 17:32 Sodium Chloride 0.9% PHA 04/02/25 Logged 17:45 Ondansetron Hcl PHA 04/02/25 Logged (Zofran) 17:45 Notify Md Of Changes LINDA 04/02/25 In Process From Base 17:32 Electrocardigram EKG 04/02/25 Logged 17:32 Ceftriaxone 1gm/50ml PHA 04/03/25 Logged (Rocephin) 09:00 Tamsulosin PHA 04/02/25 Logged Hydrochloride (Flomax) 17:45 Tamsulosin PHA 04/02/25 Logged Hydrochloride (Flomax) 18:00 Ketorolac Injection PHA 04/02/25 Logged (Toradol Injection) 17:45 Acetaminophen Tablet PHA 04/02/25 Logged (Tylenol Tablet) 17:45 Insulin Lispro PHA 04/03/25 Transmitted (Human) (Humalog) 07:00 Levothyroxine Tablet PHA 04/03/25 Transmitted (Synthroid Tablet) 06:00 Date of Service: Apr 02, 2025 Billing Provider: BROWN MILES MD Common Visit Codes: [id number] INP/OBS CARE (HIGH) Secondary Visit Codes: [id number] CARE PLAN 30 MINUTES JAKOB BOYKIN Apr 02, 2025 17:53
[2025-04-02] MEDS: TAMSULOSIN HYDROCHLORIDE 0.4 MG CAP PO ONE (18:00)
--- NOTE | 2025-04-02 19:08 | DVH ---
ULTRASOUND ABDOMEN, LIMITED RIGHT UPPER QUADRANT: REASON FOR EXAM: CT SHOWS GRANULOMA RIGHT DOME. Right renal calculus. TECHNIQUE: Real-time sector scans in the transverse and longitudinal planes were obtained through the right upper quadrant of the abdomen. FINDINGS: The liver is of normal size and contour. The liver is diffusely echogenic. There is hepatopetal flow in the portal vein. There is a 5 mm calcification in the right liver dome that corresponds to the calcified granuloma seen on CT. There is no intrahepatic biliary ductal dilatation. The common bile duct is not seen. No gallstones or sludge are identified. There is no gallbladder wall thickening nor pericholecystic fluid. There is no sonographic Ballesteros's sign. The pancreas is obscured by bowel gas. The right kidney measures 9.6 cm. No hydronephrosis or nephrolithiasis is identified. There is no evidence of right renal mass or cyst. The visualized portions of the abdominal aorta demonstrate no evidence of aneurysmal dilatation. The visualized inferior vena cava is unremarkable. There is no free fluid identified in the right upper quadrant. IMPRESSION: No gallstone is identified. No sonographic evidence of acute cholecystitis. The common bile duct is not seen on this exam. There is a 5 mm calcification in the right liver dome corresponding to the calcified granuloma seen on CT.
[2025-04-02 22:02] VITALS: PULSE 88; RESP 20; O2SAT 94
[2025-04-02] MEDS: ONDANSETRON HCL 4 MG/2 ML VIAL IV PRN (22:18)
[2025-04-02] MEDS: KETOROLAC TROMETH 30 MG/ML 1ML VIAL IV PRN (22:18)
[2025-04-02] MEDS: ACETAMINOPHEN 325 MG TAB PO PRN (22:19)
[2025-04-03 06:31] LABS: Hematocrit 33.6 % (36.0-46.0); Hemoglobin 11.9 g/dL (12.2-16.2); Mean Corpuscular Hemoglobin 33.9 pg (28.0-32.0); Mean Corpuscular Volume 95.8 fL (80.0-100.0); Nucleated Red Blood Cells % 0.1 %
[2025-04-03 06:35] LABS: Alkaline Phosphatase 98 U/L (46-116); Anion Gap 12 (5-15); BUN/Creatinine Ratio 19.3 (10.0-20.0); Blood Urea Nitrogen 11 mg/dL (9-23); Calcium 9.1 mg/dL (8.7-10.4); Carbon Dioxide 24 mmol/L (20-31); Chloride 103 mmol/L (98-107); Potassium 3.7 mmol/L (3.5-5.1); Sodium 139 mmol/L (136-145); Total Protein 7.6 g/dL (5.7-8.2); Triglycerides 87 mg/dL (< 150)
[2025-04-03 06:36] LABS: Albumin 3.9 g/dL (3.2-4.8); Bilirubin, Total 1.1 mg/dL (0.2-1.0); Cholesterol 138 mg/dL (< 200); HDL Cholesterol 49 mg/dL (40-59)
[2025-04-03 06:41] LABS: Alanine Aminotransferase 89 U/L (7-40); Glucose 159 mg/dL (74-106)
[2025-04-03] MEDS: INSULIN LISPRO (HUMAN) 100 UNITS/ML ML SC SCH (07:00)
[2025-04-03] MEDS: LEVOTHYROXINE SODIUM 25 MCG TAB PO SCH (07:19)
--- NOTE | 2025-04-03 10:32 | DVHPNRES ---
Progress Note Date Seen: Apr 03, 2025 Resident Creating Document: GARFIELD TINOCO RESIDENT Subjective Review of Systems This is a 54-year-old female with past medical history of DM 2 on metformin, hypothyroidism, renal calculus unknown side, gastric sleeve surgery came with a complaint of hematuria associated with right flank pain. Flank pain localized on right , dull in nature, no radiation 8/10 intensity, no aggravating or relieved . Patient stated passage of blood clot in urine since today morning but denies any dysuria, lower abdominal pain, trauma or injury, taking any anticoagulation. Patient had known history of renal stone diagnosed 1 year back. Patient denies any changes of dietary habits. recent visit on ER December 31, 2024 due to upper respiratory infection. Objective vital signs Vital Sign Date Time Temp Pulse Resp B/P (MAP) Pulse Ox O2 Delivery O2 Flow Rate FiO2 04/03/25 09:02 98.2 04/03/25 08:08 74 18 114/70 (85) 98 04/02/25 22:02 Room Air* 0 21 Total Intake and Output 04/02/25 04/02/25 04/03/25 15:00 23:00 07:00 Intake Total 1000 ml 50 ml Balance 1000 ml 50 ml medications Current Medications Medications Dose Ordered Sig/Irina Route Start Time Stop Time Status Last Admin Dose Admin Sodium Chloride 1,000 ml @ 120 mls/hr Q8H20M IV 04/02/25 17:45 04/03/25 09:03 120 MLS/HR Ondansetron HCl 4 mg Q4HP PRN IV 04/02/25 17:45 04/02/25 22:18 4 MG Ceftriaxone Sodium 50 ml @ 100 mls/hr DAILY@09 IV 04/03/25 09:00 04/03/25 08:58 100 MLS/HR Tamsulosin HCl 0.4 mg QPM PO 04/03/25 18:00 Acetaminophen 650 mg Q6HP PRN PO 04/02/25 17:45 04/03/25 07:19 650 MG Insulin Human Lispro AC SC 04/03/25 07:00 Levothyroxine Sodium 75 mcg QAM@0600 PO 04/03/25 06:00 04/03/25 07:19 75 MCG Ketorolac Tromethamine 15 mg Q6HPRN PRN IV 04/02/25 18:15 04/07/25 18:14 04/02/25 22:18 15 MG laboratory and microbiology Laboratory Tests 04/03/25 05:28 Test 04/03/25 05:28 Range/Units Serum Glucose 159 H 74-106 mg/dL Microbiology Date/Time Source Procedure Growth Status 04/02/25 14:09 Voided Urine Urine Culture - Preliminary Resulted My Orders My Orders Orders - GARFIELD TINOCO Procedure Category Date Status Time Consult Care CONS 04/03/25 Transmitted Coordinator GARFIELD TINOCO Apr 03, 2025 10:32
--- NOTE | 2025-04-03 11:29 | DVHDSRES ---
Discharge Summary Date of Admission Resident Creating Document: GARFIELD TINOCO Apr 02, 2025 at 17:32 Date of Discharge: Apr 03, 2025 Admitting Diagnosis Acute complicated UTI with hematuria Labs/Diagnostic Data: Laboratory Results Test 04/03/25 07:23 04/03/25 05:28 04/02/25 16:30 04/02/25 14:09 POC Glucose 146 mg/dl (70-106) White Blood Count 5.1 10^3/uL (4.4-10.8) Red Blood Count 3.50 10^6/uL (4.0-5.20) Hemoglobin 11.9 g/dL (12.2-16.2) Hematocrit 33.6 % (36.0-46.0) Mean Corpuscular Volume 95.8 fL (80.0-100.0) Mean Corpuscular Hemoglobin 33.9 pg (28.0-32.0) Mean Corpuscular Hemoglobin Concent 35.4 g/dL (32.0-36.0) Red Cell Distribution Width 12.6 % (11.8-14.3) Platelet Count 152 10^3/uL (140-450) Mean Platelet Volume 8.9 fL (6.9-10.8) Neutrophils (%) (Auto) 58.3 % (37.0-80.0) Lymphocytes (%) (Auto) 34.3 % (10.0-50.0) Monocytes (%) (Auto) 6.4 % (0.0-12.0) Eosinophils (%) (Auto) 0.6 % (0.0-7.0) Basophils (%) (Auto) 0.4 % (0.0-2.0) Neutrophils # (Auto) 3.0 10 ^3/uL (1.6-8.6) Lymphocytes # (Auto) 1.8 10 ^3/uL (0.4-5.4) Monocytes # (Auto) 0.3 10 ^3/uL (0-1.3) Eosinophils # (Auto) 0 10 ^3/uL (0-0.8) Basophils # (Auto) 0 10 ^3/uL (0-0.2) Nucleated Red Blood Cells 0.1 % Sodium Level 139 mmol/L (136-145) Potassium Level 3.7 mmol/L (3.5-5.1) Chloride Level 103 mmol/L (98-107) Carbon Dioxide Level 24 mmol/L (20-31) Anion Gap 12 (5-15) Blood Urea Nitrogen 11 mg/dL (9-23) Creatinine 0.57 mg/dL (0.550-1.02) Glomerular Filtration Rate Calc 109 mL/min (>90) BUN/Creatinine Ratio 19.3 (10.0-20.0) Serum Glucose 159 mg/dL (74-106) Hemoglobin A1c 8.7 % A1C (<5.7) Calcium Level 9.1 mg/dL (8.7-10.4) Total Bilirubin 1.1 mg/dL (0.2-1.0) Aspartate Amino Transferase (AST) 104 U/L (13-40) Alanine Aminotransferase (ALT) 89 U/L (7-40) Alkaline Phosphatase 98 U/L (46-116) Total Protein 7.6 g/dL (5.7-8.2) Albumin 3.9 g/dL (3.2-4.8) Triglycerides Level 87 mg/dL (< 150) Cholesterol Level 138 mg/dL (< 200) LDL Cholesterol 77 mg/dL (< 100) HDL Cholesterol 49 mg/dL (40-59) Vitamin B12 Level 1104 pg/mL (211-911) Vitamin D 25-Hydroxy 50.5 ng/mL (30.0-100) Thyroid Stimulating Hormone (TSH) 2.16 uIU/mL (0.55-4.78) Lactic Acid Level 1.0 mmol/L (0.4-2.0) Urine Color Dark-brown (Yellow) Urine Clarity Ex.turbid (Clear) Urine pH 6.0 (5.0-9.0) Urine Specific Stem 1.019 (1.001-1.035) Urine Protein 1+ (Negative) Urine Ketones 1+ (Negative) Urine Blood 3+ /uL (Negative) Urine Nitrite Negative (Negative) Urine Bilirubin Negative (Negative) Urine Urobilinogen Normal mg/dL (Negative) Urine Leukocyte Esterase 3+ /uL (Negative) Urine RBC 20729 /hpf (0 - 4) Urine Microscopic WBC 524 /HPF (0-5) Urine Squamous Epithelial Cells None seen /hpf (<5) Urine Bacteria None seen /hpf (None Seen) Urine Glucose Trace mg/dL (Normal) Test 04/02/25 10:58 Lipase 28 U/L (12-53) Other Laboratory Tests 04/03/25 05:28 Brief Hx & Hospital Course: This is a 54-year-old female with past medical history of DM 2 on metformin, hypothyroidism, renal calculus unknown side, gastric sleeve surgery came with a complaint of hematuria associated with right flank pain. Flank pain localized on right , dull in nature, no radiation 8/10 intensity, no aggravating or relieved . Patient stated passage of blood clot in urine since today morning but denies any dysuria, lower abdominal pain, trauma or injury, taking any anticoagulation. Patient had known history of renal stone diagnosed 1 year back. Patient denies any changes of dietary habits. recent visit on ER December 31, 2024 due to upper respiratory infection. Urinalysis significant for UTI. Patient was initially due to ceftriaxone. Patient is being discharged home with oral antibiotic Keflex. Pending uterine culture. Patient Cliff was advised to follow up in discharge clinic in 2 days and also to follow up with the PCP. Patient's meds were sent to the pharmacy electronically. Patient was hemodynamically stable on discharge General Appearance: Alert, Oriented X3, Cooperative, mild distress HEENT: Atraumatic, PERRLA, EOMI Respiratory: Clear to auscultation, Normal air movement Cardiovascular: Regular rate, Normal S1, No murmurs Abdominal: Normal bowel sounds, Soft, No tenderness, No hepatospenomegaly, Other (Right costo vertebral angle tender on deep palpation) Extremities: No clubbing, No cyanosis, No edema, Normal pulses Skin: No breakdown, No significant lesion Neuro: Normal speech, Strength at 5/5 X4 ext, Normal tone, Cranial nerves 3-12 NL Psych/Mental Status: Mental status NL, Mood NL Operations or Procedures [place] [address] Ph: [phone] DIAGNOSTIC IMAGING Diagnostic Imaging Report : [id number] Signed PATIENT: CLIFF BLISS ACCT: [id number] UNIT: [id number] : 1970 LOC: ER ROOM / BED: / AGE / SEX: 54 / F ADM STATUS: REG ER SERVICE [id number] ORDERING PHYSICIAN: ASHANTI RICH MD PROCEDURE(s): ABPL - CT AB PEL WO CON-NO ORAL OR IV REASON: right flank pain ORDER NUMBER(s): [id number], ACCESSION NUMBER(s): [id number] COMPUTERIZED TOMOGRAPHY ABDOMEN AND PELVIS WITHOUT CONTRAST REASON FOR EXAM: right flank pain COMPARISON: None TECHNIQUE: Spiral scans were acquired from the diaphragm to the symphysis pubis without intravenous contrast administration. 2-D coronal and sagittal reformatted images were provided. Radiation optimization: All CT scans at this facility use at least one of these dose optimization techniques: Automated exposure control mA and/or kV adjustment per patient size (includes targeted exams where dose is matched to clinical indication) or iterative reconstruction. RADIATION DOSE: CTDI: 15 mGy DLP: 842 mGy-cm FINDINGS: The visualized lung bases are grossly clear. There is no pleural effusion. There is no pericardial effusion. The spleen is not enlarged. The liver is normal in size and contour. Evaluation of the abdominal organs is suboptimal in the absence of intravenous contrast. There is a 3 mm calcified granuloma at the right liver dome consistent with prior granulomatous disease. No calcified gallstone is identified. Unenhanced appearance of the pancreas is grossly unremarkable. 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 The adrenal glands appear normal. The kidneys are similar in size. There is no hydronephrosis of either kidney. There is a 2 mm nonobstructive calculus at the superior pole of the right kidney. No ureteral or bladder calculus is identified. The urinary bladder is within normal limits. The uterus and ovaries are within normal limits. There is trace free fluid in the dependent pelvis, likely physiologic. The colonic stool burden is small. The appendix is not seen and may be absent. There is no pericecal inflammatory change to suggest acute appendicitis. There is no abnormal distention of the small bowel. There is no abdominal aortic aneurysm. No pathologic lymphadenopathy is identified by size criteria. No acute osseous abnormality is identified. IMPRESSION: There is a 2 mm nonobstructive calculus at the superior pole of the right kidney. No ureteral or bladder calculus is identified. There is no hydronephrosis of either kidney. ATED BY: JEREMIE ESCOBAR MD DICTATED DATE/TIME: 04/02/25 1548 SIGNED BY: JEREMIE ESCOBAR MD SIGNED DATE/TIME: 04/02/25 1548 CC: [facility] [id number] [place], [place] [address] Ph: [phone] DIAGNOSTIC IMAGING Diagnostic Imaging Report : [id number] Signed PATIENT: CLIFF BLISS ACCT: [id number] UNIT: [id number] : 1970 LOC: OVERFLOW ROOM / BED: [facility] / A AGE / SEX: 54 / F ADM STATUS: ADM IN SERVICE 333 ORDERING PHYSICIAN: JAKOB BOYKIN RESIDENT PROCEDURE(s): ABDL - ABDOMEN LIMITED REASON: CT SHOWS GRANULOMA RIGHT DOME ORDER NUMBER(s): [id number], ACCESSION NUMBER(s): [id number] ULTRASOUND ABDOMEN, LIMITED RIGHT UPPER QUADRANT: REASON FOR EXAM: CT SHOWS GRANULOMA RIGHT DOME. Right renal calculus. TECHNIQUE: Real-time sector scans in the transverse and longitudinal planes were obtained through the right upper quadrant of the abdomen. FINDINGS: The liver is of normal size and contour. The liver is diffusely echogenic. There is hepatopetal flow in the portal vein. There is a 5 mm calcification in the right liver dome that corresponds to the calcified granuloma seen on CT. There is no intrahepatic biliary ductal dilatation. The common bile duct is not seen. No gallstones or sludge are identified. There is no gallbladder wall thickening nor pericholecystic fluid. There is no sonographic Ballesteros's sign. The pancreas is obscured by bowel gas. The right kidney measures 9.6 cm. No hydronephrosis or nephrolithiasis is identified. There is no evidence of right renal mass or cyst. The visualized portions of the abdominal aorta demonstrate no evidence of aneurysmal dilatation. The visualized inferior vena cava is unremarkable. There is no free fluid identified in the right upper quadrant. IMPRESSION: No gallstone is identified. No sonographic evidence of acute cholecystitis. The common bile duct is not seen on this exam. There is a 5 mm calcification in the right liver dome corresponding to the calcified granuloma seen on CT. ATED BY: JEREMIE ESCOBAR MD DICTATED DATE/TIME: 04/02/251905 SIGNED BY: JEREMIE ESCOBAR MD SIGNED DATE/TIME: 11/16/25 1906 CC: Condition at Discharge: Stable Final Diagnosis/Problems List Complicated urinary tract infection likely Gram-positive/Gram-negative Nonobstructive calculus superior pole of right kidney Essential hypertension Transaminitis Calcified granuloma right liver dome Type 2 diabetes mellitus Hypothyroidism History of sleeve gastrectomy Discharge Disposition: Home Discharge Instruct/Medications Diet: Consistent carbohydrate, Cardiac 2g Na,low cholest Activity: No Restrictions, As Tolerated Follow Up/Referral: PCP OR clinic Medications: Keflex 500 mg p.o. b.i.d. for 7 days Ibuprofen PRN as prescribed Pantoprazole 40 mg daily as prescribed Please resume other home medication Scheduled Benzonatate (Benzonatate), 1 CAP PO TID Cephalexin (Keflex Capsule), 2 CAP PO BID Ibuprofen (Ibuprofen), 1 TAB PO Q6HPRN Methylprednisolone (Medrol Dosepak), 4 MG PO UD Pantoprazole Sodium Sesquihydr (Pantoprazole Sodium), 40 MG PO DAILY Valacyclovir Hcl (Valtrex), 1 TAB PO TID Discharge Statement: "Patient was advised to return to the ER or call 911 if any headaches, dizziness, shortness of breath, chest pain, abdominal pain, bleeding, fevers, or worsening of medical condition. Patient was counseled about treatment plan, medications, possible side effects, patientverbalized understanding. All questions were answered to the best of my ability. This discharge took greater then 30 minutes in planning, reviewing documentation, counseling the patient, and discussing with other team members." ASSESSMENT ASSESSMENT Assessment Date of Service: Apr 03, 2025 Billing Provider: MOHIT BOLAND DO Common Visit Codes: 89193-EPI/OBS DISCH DAY >30min GARFIELD TINOCO RESIDENT Apr 03, 2025 11:29 MOHIT BOLAND DO Apr 18, 2025 16:05
[2025-04-03] MEDS ORDERED: CEPH250C PO (11:33)
[2025-04-03] MEDS ORDERED: PANT40T PO (11:33)
[2025-04-03] MEDS ORDERED: IBUP-1453 PO (11:33)
[2025-04-03 13:36] VITALS: BP 118/69; PULSE 80; RESP 18; TEMP 98.2; O2SAT 100
[2025-04-03] MEDS ORDERED: TAMSULOSIN HYDROCHLORIDE 0.4 MG CAP PO SCH (18:00)
== END 2025-04-03 14:36 | disposition home or self-care (01) ==
LOC: ER 09:50 → OVERFLOW 17:32 → UNDOADMIN 17:32 → OVERFLOW 17:38 → ER 04-03 13:04
PROVIDERS: ADMIT Internal Medicine; ATTEND Internal Medicine
DX: N10 Acute pyelonephritis (principal); R10.9 Unspecified abdominal pain; Z79.899 Other long term (current) drug therapy
CPT/HCPCS: 36415; 74176; 76705; 80053; 80061; 81001; 82306; 82607; 82947; 83036; 83605; 83690; 84443; 85025; 87040; 87086; 87088; 87186; 96361; 96365; 96366; 96375; 96376; 99285; J0696; J1885; J2270; J2405; J7030; 82962; 96374; G0378